=== PATIENT | female | born 1980 | race Hispanic/Latino ===

== ENCOUNTER 2019-02-27 21:18 | Emergency (ER) | payer MEDICAID, OTHER ==
[2019-02-27] MEDS ORDERED: IBUPROFEN 600 MG TABLET ONE (22:27)
== END 2019-02-27 22:31 | disposition home or self-care (01) ==
LOC: EDH 21:18
DX: S60.222A Contusion of left hand, initial encounter (principal); Z90.710 Acquired absence of both cervix and uterus; Z98.890 Other specified postprocedural states; W20.8XXA Other cause of strike by thrown, projected or falling object, initial encounter; Y93.89 Activity, other specified; Y92.89 Other specified places as the place of occurrence of the external cause; Y99.8 Other external cause status
CPT/HCPCS: 73130

== ENCOUNTER 2025-01-07 15:39 | Emergency (ER) | payer BC, OTHER ==
[~2025-01-07] VITALS: Ht 149.9 cm; Wt 65.8 kg
--- NOTE | 2025-01-07 15:51 | ERN ---
ED Note History of Present Illness Stated Complaint: DIZZINESS Chief Complaint: Dizzy/Light Headed Time Seen by MD: 15:44 Dictation: PATIENT IS A 44-YEAR-OLD FEMALE HERE WITH HER WITH COMPLAINTS OF HAVING AN EPISODE OF LIGHTHEADEDNESS AND DIZZINESS ONSET 1 HOUR PRIOR TO ARRIVAL. SHE STATES SHE WAS SITTING IN HER CAR TALKING WITH THE TELEPHONE WITH HER MOTHER WHEN SHE FELT LIGHTHEADED AND DIZZY. LAST PER MINUTE OR SO AND THEN IT RESOLVED. AT THIS TIME SHE IS ALERT AND ORIENTED X4 SPEECH IS CLEAR AND GAIT IS STEADY TO TRIAGE. NIH IS 0 ON APPROACH AND PATIENT IS HEMODYNAMICALLY STABLE. STATES HER ONLY CHRONIC HISTORY IS SHE HAS A OCCASIONAL FACIAL SWELLING THAT HER DOCTOR'S WORKING ON IN [facility]. Allergies: Coded Allergies: No Known Drug Allergies (Unverified Allergy, Unknown, 02/27/19) Past Medical History Past Medical History: High Cholesterol Additional Past Medical Hx: MENOPAUSE Surgical History: Hysterectomy, History: Not Applicable RN Note Reviewed/Agreed w/PFSH: Yes Review of System Dictation CONSTITUTIONAL: NEGATIVE EXCEPT FOR HPI HEAD/FACE: NEGATIVE EXCEPT FOR HPI EENT: NEGATIVE EXCEPT FOR HPI RESPIRATORY: NEGATIVE EXCEPT FOR HPI GASTROINTESTINAL/ABDOMINAL: NEGATIVE EXCEPT FOR HPI GENITOURINARY: NEGATIVE EXCEPT FOR HPI MUSCULOSKELETAL: NEGATIVE EXCEPT FOR HPI INTEGUMENTARY: NEGATIVE EXCEPT FOR HPI NEUROLOGICAL/PSYCH: NEGATIVE EXCEPT FOR HPI DIZZINESS HEMATOLOGIC/LYMPHATIC: NEGATIVE EXCEPT FOR HPI ALL SYSTEMS NEGATIVE, EXCEPT NOTED ABOVE. 13 POINT REVIEW OF SYSTEMS ASSESSED AND ALL NEGATIVE EXCEPT FOR ABOVE. Initial Vital Sign VS Vital Signs Date Time Temp Pulse Resp B/P (MAP) Pulse Ox O2 Delivery O2 Flow Rate FiO2 01/07/25 15:42 98.1 52 18 151/78 100 Room Air 0 01/07/25 17:14 21 Physical Exam Dictation VITAL SIGNS REVIEWED GENERAL APPEARANCE: ALERT, ORIENTED X 3, NO ACUTE DISTRESS, WELL DEVELOPED, NOURISHED. HEAD AND FACE: NON-TRAUMATIC. EYES: PERRL, PINK CONJUNCTIVAS, EYELID NO TRAUMA, ANTERIOR CHAMBER WITH ARCUS SENILIS. EARS: PINNAS INTACT AND NO SIGNS OF TRAUMA OR ERYTHEMA EAR CANALS CLEAR AND NO DISCHARGE TM NO ERYTHEMA NOSE: NO DISCHARGE, NO BLEEDING. OROPHARYNX: MOUTH NORMAL, TONGUE PINK, PHARYNX CLEAR,NO ERYTHEMA, TONSILS NO EXUDATES, NO ABSCESSES NOTED, MUCOUS MEMBRANE MOIST NECK: SUPPLE, NON-TENDER, NO THYROMEGALY, NO MASSES, NO JVD, NO BRUITS BREAST:DEFERRED CHEST:NO TENDERNESS, NO CREPITUS, NO PARADOXICAL MOVEMENT, NO RETRACTIONS LUNGS:CLEAR, WELL-VENTILATED, SYMMETRIC, NO RALES, NO WHEEZING, NO RHONCHI, NO STRIDOR, GOOD BREATH SOUNDS BILATERALLY HEART: REGULAR RATE, REGULAR RHYTHM, NO MURMUR, NO GALLOPS VASCULAR: NO PERIPHERAL EDEMA, ABDOMEN: SOFT, POSITIVE BOWEL SOUNDS, NONDISTENDED, NO GUARDING, NONTENDER, NO REBOUND, NO MASSES NO HEPATOMEGALY, NO SPLENOMEGALY, NO CASE'S SIGN, NO HERNIAS. RECTAL: DEFERRED GENITAL: DEFERRED NEUROLOGICAL: NORMAL SPEECH, MOTOR FUNCTION INTACT, SENSORY FUNCTION INTACT NIH IS 0 MUSCULOSKELETAL: NECK NONTENDER, FULL RANGE OF MOTION, BACK NONTENDER, FULL RANGE OF MOTION, EXTREMITIES: NONTENDER, FULL RANGE OF MOTION SKIN: COLOR PINK, DRY, NO TURGOR, NO RASH, NO LACERATIONS, NO ABRASIONS, NO CONTUSIONS. LYMPHATIC: DEFERRED Results (Laboratory/Radiology) Laboratory/Radiology Laboratory Tests Test 01/07/25 15:50 01/07/25 16:05 01/07/25 17:05 Whole Blood Glucose 85 MG/DL (70-110) White Blood Count 6.2 K/uL (4.8-10.8) Red Blood Count 4.07 MIL/uL (4.00-5.50) Hemoglobin 13.3 g/dL (12.0-16.0) Hematocrit 38.0 % (36-48) Mean Corpuscular Volume 93.4 fL (79-99) Mean Corpuscular Hemoglobin 32.7 pg (27.0-33.0) Mean Corpuscular Hemoglobin Concent 35.0 g/dL (32.0-36.0) Red Cell Distribution Width 12.7 % (11.0-15.5) Platelet Count 333 K/uL (130-400) Mean Platelet Volume 10.7 fL (7.5-10.5) H Immature Granulocyte % (Auto) 0.3 % (0-1) Neutrophils (%) (Auto) 41.4 % (40.0-77.0) Lymphocytes (%) (Auto) 46.2 % (21.0-51.0) Monocytes (%) (Auto) 6.3 % (3.0-13.0) Eosinophils (%) (Auto) 4.5 % (0.0-8.0) Basophils (%) (Auto) 1.3 % (0.0-5.0) Neutrophils # (Auto) 2.6 K/uL (1.8-7.7) Lymphocytes # (Auto) 2.9 K/uL (1.0-4.8) Monocytes # (Auto) 0.4 K/uL (0.1-1.0) Eosinophils # (Auto) 0.28 K/uL (0.00-0.70) Basophils # (Auto) 0.08 K/uL (0.00-0.20) Absolute Immature Granulocyte (auto 0.02 K/uL (0-1) Nucleated Red Blood Cells 0.0 % (0.0-0.19) Sodium Level 138 mmol/L (136-145) Potassium Level 3.6 mmol/L (3.5-5.1) Chloride Level 104 mmol/L (101-111) Carbon Dioxide Level 30 mmol/L (21-32) Blood Urea Nitrogen 13 mg/dL (7-18) Creatinine 0.8 mg/dL (0.5-1.0) Glomerular Filtration Rate Calc 93 mL/min (>90) Random Glucose 89 mg/dL (70-105) Total Calcium 8.7 mg/dL (8.5-10.1) Troponin I High Sensitivity < 4 ng/L (4-50) L Urine Color COLORLESS (YELLOW) Urine Appearance CLEAR (CLEAR) Urine pH 7.0 (5.0-8.0) Urine Specific [place] 1.002 (1.001-1.031) Urine Protein NEGATIVE mg/dL (NEGATIVE) Urine Glucose (UA) NEGATIVE mg/dL (NEGATIVE) Urine Ketones NEGATIVE mg/dL (NEGATIVE) Urine Occult Blood NEGATIVE (NEGATIVE) Urine Nitrate NEGATIVE (NEGATIVE) Urine Bilirubin NEGATIVE mg/dL (NEGATIVE) Urine Urobilinogen 0.2 mg/dL (0.2-1.0) Urine Leukocyte Esterase NEGATIVE [place]/uL Urine RBC 0-1 /HPF (0-1) Urine WBC 0-1 /HPF (0-1) Urine Squamous Epithelial Cells RARE /HPF (0-2) Urine Bacteria FEW /HPF (None Seen) Urine HCG, Qualitative NEGATIVE (NEGATIVE) CLINICAL HISTORY: ONSET DIZZINESS 1 HOUR PRIOR TO ARRIVAL. RESOLVED TECHNIQUE: Axial computed tomography images of the head/brain without intravenous contrast. COMPARISON: None provided. FINDINGS: BRAIN: No evidence of acute hemorrhage. No mass lesion. No CT evidence for acute territorial infarct. No midline shift or extra-axial collections. VENTRICLES: No hydrocephalus. ORBITS: The orbits are unremarkable. SINUSES AND MASTOIDS: The paranasal sinuses and mastoid air cells are clear. BONES: No fracture. SOFT TISSUES: Unremarkable. IMPRESSION: No acute intracranial abnormality. /[facility] Reviewed?: Yes EKG: (+) NSR EKG Comment: EKG NORMAL SINUS BRADYCARDIA HEART RATE 50/AXIS NORMAL/NO ECTOPY ED Course ED Course Orders Procedure Category Date Status Time Orthostatic Vital CPOE 01/07/25 Transmitted Signs 15:47 Ct Head/Brain W/O CT 01/07/25 Resulted Contrast 15:47 Cbc With Differential LAB 01/07/25 Complete 15:47 Troponin I High LAB 01/07/25 Complete Sensitivity 15:47 ,Urine Test LAB 01/07/25 Complete 15:47 Urinalysis Profile LAB 01/07/25 Complete 15:47 12 Lead Ekg Tracing- EKG 01/07/25 Logged Technical 15:47 0.9%Nacl 1000ml (Ns PHA 01/07/25 Complete 1000ml) 16:00 Basic Metabolic Panel LAB 01/07/25 Complete 15:47 Current Medications Medications (Trade) Dose Ordered Sig/Janina Route PRN Reason Start Time Stop Time Status Last Admin Dose Admin Sodium Chloride 1,000 ml @ 0 mls/hr ONCE ONCE IV 01/07/25 16:00 01/07/25 16:01 DC 01/07/25 16:59 Vital Signs Date Time Temp Pulse Resp B/P (MAP) Pulse Ox O2 Delivery O2 Flow Rate FiO2 01/07/25 17:28 97.9 50 15 124/67 100 Room Air* 0 21 133/70 139/74 01/07/25 17:14 97.9 50 15 124/70 100 Room Air* 0 21 01/07/25 15:42 98.1 52 18 151/78 100 Room Air 0 1745/NIH is 0 patient states she feels markedly improved after fluids. Cardiac workup CT of the head negative Orthostatics are normal. With no changes. Patient and her at bedside and shared all results we will send patient home. HEART Score Response (Comments) Value History: Low suspicion (0) 0 Age: 45-65yrs (+1) 1 Risk Factors: No known risk factors (0) 0 Initial Troponin: Normal limit (0) 0 Total 1 Medical Decision Making MDM MDM: Differential diagnosis: ACS/AMI/electrolyte imbalance/dehydration/orthostasis/CP Rationale: Tests considered and ordered secondary to shared decision making include: CT of the head/labs/EKG/orthostasis ferraro signs Previous outside records reviewed: Old ER visits. Risk of complication and/or morbidity or mortality of patient management: None Medications-Per medication reconciliation Need for hospitalization: Patient does not meet criteria for hospitalization. No Need for emergency major/minor surgery: No There are no social concerns with this patient. Prescription drug management none Prescriptions will include symptomatic care Patient's prior external medical records from other ER visits were reviewed by me as indicated. Prior testing and results from previous visits were reviewed. Prior tests were taken into account with medical decision making and resource utilization, independent historian/historians were used to obtain complete medical history. I independently interpreted the test that were performed, results were reviewed by me and considered findings on radiology if ordered. Medical management and examination interpretation discussions were had by me wi th other qualified healthcare professionals as indicated for the patient's care. DX & DISP Disposition: Discharge Departure Impression: Primary Impression: Dizziness Condition: Stable Additional Instructions: Follow-up with primary care provider in 1 to 2 days. Take medications as directed here in the emergency room. Okay to continue home medications unless otherwise discussed during your visit in the emergency room today. Return to your nearest emergency room if symptoms worsen or if there is no improvement. Call 911 if you need immediate assistance. Take Tylenol or Motrin [id number] as needed and if no contraindications are present. Increase oral hydration. A wound culture or urine culture was ordered here in the emergency room department please follow-up with primary care provider and advise them to get repeat ports from our facility. If you had any Donovan wrap/splints that were applied here, please do not remove them until you see your primary care or specialty. Diet and activity as tolerated. NO WORK UNTIL CLEARED BY YOUR PRIMARY CARE DOCTOR IN THE NEXT 1-2 DAYS. Time of Disposition: 17:48 I have reviewed the case, and I agree with, Diagnosis and Plan RHEINER,[employer] Jan 07, 2025 15:51
[2025-01-07 16:12] LABS: IMMATURE GRANULOCYTE ABSOLUTE 0.02 K/uL (0-1); NUCLEATED RED BLOOD CELLS 0.0 % (0.0-0.19); PLATELET COUNT (AUTO) 333 K/uL (130-400); RED BLOOD CELL COUNT(AUTO) 4.07 MIL/uL (4.00-5.50); RED CELL DISTRIBUTION WIDTH 12.7 % (11.0-15.5); WHITE BLOOD COUNT (AUTO) 6.2 K/uL (4.8-10.8)
[2025-01-07 16:21] LABS: CREATININE 0.8 mg/dL (0.5-1.0); GLOMERULAR FILTR. RATE CALC 93.0 mL/min (>90); GLUCOSE,RANDOM 89.0 mg/dL (70-105); SODIUM SERUM 138.0 mmol/L (136-145); UREA NITROGEN, BLOOD 13.0 mg/dL (7-18)
[2025-01-07] MEDS: 0.9%NACL 1000ML 1,000 ML IV ONE (16:59)
--- NOTE | 2025-01-07 17:03 | HMCIMG ---
EXAM: CT Head Without IV contrast. CLINICAL HISTORY: ONSET DIZZINESS 1 HOUR PRIOR TO ARRIVAL. RESOLVED TECHNIQUE: Axial computed tomography images of the head/brain without intravenous contrast. COMPARISON: None provided. FINDINGS: BRAIN: No evidence of acute hemorrhage. No mass lesion. No CT evidence for acute territorial infarct. No midline shift or extra-axial collections. VENTRICLES: No hydrocephalus. ORBITS: The orbits are unremarkable. SINUSES AND MASTOIDS: The paranasal sinuses and mastoid air cells are clear. BONES: No fracture. SOFT TISSUES: Unremarkable. IMPRESSION: No acute intracranial abnormality. /[place]
[2025-01-07 17:14] LABS: APPEARANCE,URINE CLEAR (CLEAR); GLUCOSE, URINE (UA) NEGATIVE (NEGATIVE); LEUKOCYTE ESTERASE ,URINE NEGATIVE Leu/uL (NEGATIVE); NITRATE,URINE NEGATIVE (NEGATIVE); OCCULT BLOOD,URINE NEGATIVE (NEGATIVE)
[2025-01-07 17:15] LABS: HCG,QUALITATIVE URINE NEGATIVE (NEGATIVE)
[2025-01-07 17:16] LABS: ADD UA MICROSCOPIC YES
[2025-01-07 17:17] LABS: SQUAMOUS EPITHELIAL CELL,UR RARE /HPF (0-2)
[2025-01-07 17:28] VITALS: BP 139/74; PULSE 50; RESP 15; TEMP 97.9; O2SAT 100
--- NOTE | 2025-01-07 18:02 | NUR ---
DC PATIENT WAS DC'D BY DR XOCHITL Wilson DC'D PATIENTS IV WITH CATH STILL INTACT AND APPLIED 2X2 GAUZE WITH COBAN I EXPLAINED TO PATIENT TO FOLLOW UP WITH PCP, PROVIDED INFO BASED ON DIAGNOSIS, AND ANSWERED ANY FOLLOW UP QUESTIONS PATIENT AMBULATED OUT OF ED, NO COMPLICATIONS
--- NOTE | 2025-01-08 06:31 | EKG ---
[facility] Test Date: 2025-01-07 Test Time: 15:59:36 Pat Name: FRANK SALMERON Department: ED Room: Gender: F [employer] Assistant: [id number] : 1980 Requested By: BROOKLYNN QUICK Order Number: [id number] Reading MD: Larry Degroot Measurements Intervals [place] Rate: 50 P: 63 WI: 164 QRS: 22 QRSD: 87 T: 40 QT: 437 QTc: 399 Interpretive Statements Sinus rhythm No previous ECG available for comparison Electronically Signed On 01-08-2025 13:35:39 CDT by Larry Degroot Please click the below link to view image of tracing.
== END 2025-01-07 18:01 | disposition home or self-care (01) ==
LOC: EDH 15:39
DX: R42 Dizziness and giddiness (principal); E78.00 Pure hypercholesterolemia, unspecified; Z90.710 Acquired absence of both cervix and uterus; Z98.890 Other specified postprocedural states
CPT/HCPCS: 99284; 96360; 70450; 84484; 80048; 85025; 82948; 81001; 81025; 36415; 93005; J7030